=== PATIENT | male | born 1975 | race Caucasian/White ===

== ENCOUNTER → 2022-03-15 16:56 | Outpatient (BNVA) | payer BC, SELFPAY | PROVIDERS: Family Provider Nurse Practitioner Family; PCP Nurse Practitioner Family; Visit Provider Nurse Practitioner Family | DX: R11.0 Nausea (principal); K80.20 Calculus of gallbladder without cholecystitis without obstruction; K21.9 Gastro-esophageal reflux disease without esophagitis | CPT/HCPCS: 80053 ==

== ENCOUNTER → 2022-09-19 11:06 | Outpatient (BNVA) | payer BC, SELFPAY | PROVIDERS: Family Provider Nurse Practitioner Family; PCP Nurse Practitioner Family; Visit Provider Nurse Practitioner Family | DX: R51.9 Headache, unspecified (principal); Z86.19 Personal history of other infectious and parasitic diseases; K21.9 Gastro-esophageal reflux disease without esophagitis; Z13.220 Encounter for screening for lipoid disorders; M79.10 Myalgia, unspecified site; G47.26 Circadian rhythm sleep disorder, shift work type; M25.50 Pain in unspecified joint | CPT/HCPCS: 80053; 80061; 82306; 83721; 85651; 86140; 86618; 86666; 86757 ==

== ENCOUNTER 2022-10-17 08:55 | Outpatient (CLI) | payer BC, SELFPAY ==
--- NOTE | 2022-10-17 09:00 | CT_ITS ---
WS: [id number] CT HEAD TECHNIQUE: Noncontrast CT of the head obtained from the skullbase to the vertex. CLINICAL INFORMATION: daily headaches DLP: 1062.[address] scans at [facility] use at least one of these dose optimization techniques: automated e xposure control; mA and/or kV adjustment per patient size (includes targeted exams where dose is matc hed to clinical indication); or iterative reconstruction. FINDINGS: No evidence of intracranial hemorrhage or mass effect. Ventricular system and basal cisterns are christian nt. No extra-axial fluid collections. No evidence of mass or mass effect. Normal hill-white different iation. Incidental slightly low-lying cerebellar tonsils unchanged since MRI 2007 Paranasal sinuses and mastoid air cells are well aerated. .Normal visualized soft tissues. CT/CT head wo con* [id number] IMPRESSION: 1. No evidence of intracranial hemorrhage or mass effect. 2. Normal hill-white differentiation. 3. No acute intracranial findings.
--- NOTE | 2022-10-17 09:05 | XRR_ITS ---
PROCEDURE INFORMATION: Exam: XR Cervical Spine Exam date and time: 10/17/2022 9:10 AM Age: 47 years old Clinical indication: Pain; Other: Headache TECHNIQUE: Imaging protocol: Radiologic exam of the cervical spine. Views: 2 or 3 views. COMPARISON: CT head wo con* [id number] 10/17/2022 9:02 AM FINDINGS: Bones/joints: Spinal alignment is normal. Vertebral body height is maintained. Intervertebral disc height is maintained. No acute fracture. Soft tissues: Visible soft tissues are unremarkable. XR/XR cervical spine 3V* [id number] IMPRESSION: No acute findings.
== END 2022-10-17 08:56 | disposition home or self-care (01) ==
LOC: RAD 08:55
PROVIDERS: PCP Nurse Practitioner Family; Visit Provider Nurse Practitioner Family
DX: R51.9 Headache, unspecified (principal)
CPT/HCPCS: 70450; 72040

== ENCOUNTER → 2023-02-09 11:55 | Outpatient (BNVA) | payer BC, SELFPAY | PROVIDERS: PCP Nurse Practitioner Family; Visit Provider Registered Nurse Neonatal Intensive Care | DX: R30.0 Dysuria (principal); N39.0 Urinary tract infection, site not specified | CPT/HCPCS: 81000; 87086; 87491; 87591 ==

== ENCOUNTER → 2024-02-18 16:14 | Outpatient (BNVA) | payer BC, SELFPAY | PROVIDERS: PCP Nurse Practitioner Family; Visit Provider Nurse Practitioner Family | DX: E78.2 Mixed hyperlipidemia (principal); E55.9 Vitamin D deficiency, unspecified; K21.9 Gastro-esophageal reflux disease without esophagitis; G47.26 Circadian rhythm sleep disorder, shift work type | CPT/HCPCS: 80053; 80061; 82306; 83721; 85025 ==

== ENCOUNTER → 2024-11-26 12:48 | Outpatient (BNVA) | payer BC, SELFPAY | PROVIDERS: PCP Nurse Practitioner Family; Visit Provider Nurse Practitioner Family | DX: E78.2 Mixed hyperlipidemia (principal); E55.9 Vitamin D deficiency, unspecified; K21.9 Gastro-esophageal reflux disease without esophagitis; R51.9 Headache, unspecified; G89.29 Other chronic pain; G47.26 Circadian rhythm sleep disorder, shift work type | CPT/HCPCS: 80053; 80061; 82306; 83721; 84443; 85025 ==

== ENCOUNTER → 2025-03-31 09:20 | Outpatient (BNVA) | payer BC, SELFPAY | PROVIDERS: PCP Nurse Practitioner Family; Visit Provider Nurse Practitioner Family | DX: Z12.5 Encounter for screening for malignant neoplasm of prostate (principal); E78.2 Mixed hyperlipidemia; E55.9 Vitamin D deficiency, unspecified; K21.9 Gastro-esophageal reflux disease without esophagitis; R51.9 Headache, unspecified; G89.29 Other chronic pain | CPT/HCPCS: 80053; 80061; 84443; 85025; G0103 ==